=== PATIENT | male | born 1960 | race Caucasian/White ===

== ENCOUNTER 2022-09-12 07:50 | Emergency (ER) | payer OTHER ==
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
[2022-09-12 08:29] LABS: Absolute Neutrophil Ct (ANC) 3.83 x10^3/uL (1.4-6.9); Basophil (Absolute #) 0.03 x10^3/uL (0-0.4); Eosinophil (Absolute #) 0.06 x10^3/uL (0-0.5); Hematocrit 43.3 % (42-50); Hemoglobin 13.9 g/dL (12.5-18.0); Lymphocyte (Absolute #) 1.84 x10^3/uL (1.0-4.6); Lymphocytes % 29.7 % (24.0-44.0); Mean Corpuscular Hemoglobin 28.3 pg (26-32); Mean Corpuscular Hgb Concent. 32.1 g/dL (32-36); Mean Platelet Volume 10.6 fL (7.5-11.0); Monocyte (Absolute #) 0.43 x10^3/uL (0.0-1.3); Monocytes % 6.9 % (0.0-12.0); Neutrophil % 61.7 % (36.0-66.0); Platelet Count 224 x10^3/uL (150-450); Red Blood Count 4.92 x10^6/uL (4.1-5.6); White Blood Count 6.2 x10^3/uL (4.0-10.5)
[2022-09-12 09:11] LABS: ACETAMINOPHEN < 10 ug/ml (10-30); ALBUMIN 4.4 g/dL (3.5-5.0); ALKALINE PHOSPHATASE 51 U/L (38-126); BLOOD UREA NITROGEN 10 mg/dL (9-20); CHLORIDE 105 mmol/L (98-107); Calcium 9.1 mg/dL (8.4-10.2); Carbon Dioxide 28 mmol/L (22-30); Creatinine 1 0.73 mg/dL (0.66-1.25); EST GLOMERULAR FILTRATION RATE > 60.0 ML/MIN; ETHYL ALCOHOL < 10 mg/dL (0-10); Glucose 133 mg/dL (74-106); Potassium 4.1 mmol/L (3.5-5.1); SALICYLATE < 1.0 mg/dL (2-20); SGOT/AST 27 U/L (17-59); SGPT/ALT 24 U/L (0-50); SODIUM 138 mmol/L (137-145); TSH, 3RD Generation 0.754 mIU/L (0.47-4.68); Total Protein 7.3 g/dL (6.3-8.2)
[2022-09-12 09:33] LABS: Amphetamine,Urine NEGATIVE (NEGATIVE); Barbiturate,Urine NEGATIVE (NEGATIVE); Benzodiazepine,Urine NEGATIVE (NEGATIVE); Cocaine,Urine NEGATIVE (NEGATIVE); Methadone,Urine NEGATIVE (NEGATIVE); Opiate,Urine NEGATIVE (NEGATIVE); PCP,Urine NEGATIVE (NEGATIVE); THC,Urine NEGATIVE (NEGATIVE)
[2022-09-12 09:40] LABS: WBC 0-2 /HPF (0-5)
[2022-09-12 09:42] LABS: Appearance CLEAR (CLEAR); Bilirubin NEGATIVE (NEGATIVE); Glucose NEGATIVE (NEGATIVE); Ketones NEGATIVE (NEGATIVE); Nitrite NEGATIVE (NEGATIVE); Ph 6.5 (5-6); Protein,Urine Dip NEGATIVE (Negative); RBC NEGATIVE Ery/ul (0-5); Urobilinogen 0.2 mg/dL (0-1)
[2022-09-12 09:43] LABS: Dipstick done @ ? MAIN LAB; Urine Cultured Indicated? NO
[2022-09-12 14:04] VITALS: O2SAT 98
[2022-09-12 15:15] VITALS: BP 122/64; PULSE 54
== END 2022-09-12 16:02 ==
LOC: ED 07:50
DX: R45.851 Suicidal ideations (principal); Z65.3 Problems related to other legal circumstances; Z63.6 Dependent relative needing care at home; Z86.16 Personal history of COVID-19; E78.5 Hyperlipidemia, unspecified; Z79.899 Other long term (current) drug therapy
CPT/HCPCS: 36415; 80053; 80307; 81015; 84443; 85025; 99284; 99291; G0480; 90791; Q3014